=== PATIENT | female | born 1970 ===

== ENCOUNTER 2025-03-09 08:15 | Inpatient (IN) | payer OTHER ==
[~2025-03-09] VITALS: Ht 66 cm; Wt 69.4 kg
[2025-03-09 09:00] LABS: BASO % 0.2 % (0.1-1.2); EOS # 0.10 (0.04-0.54); EOS % 2.0 % (0.7-7.0); LYMPH # 1.75 (1.18-3.74); LYMPH % 34.9 % (19.3-53.1); MEAN PLATELET VOLUME 8.90 fl (9.4-12.4); MONO # 0.45 (0.24-0.82); MONO % 9.0 % (4.7-12.5); NEUT # 2.69 (1.56-6.13); NEUT % 53.7 % (34.0-71.1); RED CELL DISTRIBUTION WIDTH 14.3 % (11.6-14.4)
[2025-03-09] MEDS ORDERED: ZESTRIL10 M1 PO (09:05)
[2025-03-09] MEDS ORDERED: LEVOTHYROXINE137 MC1 PO (09:05)
[2025-03-09 09:06] VITALS: BP 130/83
[2025-03-09] MEDS ORDERED: ASA81 MG PO (09:06)
[2025-03-09 09:27] LABS: INR 1.0
[2025-03-09 09:56] LABS: ALT/SGPT 23.0 U/L (12-78); AST/SGOT 18.0 U/L (15-37); BILIRUBIN TOTAL 0.52 mg/dL (0.3-1.2); BUN CREA RATIO 20.0 (7.0-25.0); CREATININE SERUM 0.71 mg/dL (0.55-1.02); GFR 86.11; GLOBULINA 3.8 G/DL (2.4-3.5); GLUCOSE FASTING 92.0 mg/dL (65-100); OSMOLALITY SERUM 285.0 MOSM/KG (275-295)
[2025-03-09 13:31] LABS: URINE APPEARANCE Clear; URINE BILIRRUBIN Negative (NEGATIVE); URINE BLOOD Negative; URINE COLOR Yellow; URINE GLUCOSE Negative (NEGATIVE); URINE KETONE Negative (NEGATIVE); URINE LEUKOCYTE Negative; URINE NITRATE Negative; URINE PROTEIN Negative (NEGATIVE); URINE UROBILINOGEN 0.2 E.U./dl
[2025-03-09 13:32] LABS: URINE BACTERIA 208.7 uL (0.0-1933); URINE CAST 0.00 uL (0.0-1.40); URINE EPITHELIAL CELLS 8.4 uL (0.0-38.8); URINE RBC 5.4 uL (0.0-20.8); URINE WBC 2.6 uL (0.0-23.2)
[2025-03-14] MEDS ORDERED: CEFAZOLIN SODIUM 1,000 MG VIAL ONE (13:23)
[2025-03-14] MEDS ORDERED: POVIDONE-IODINE 118 ML BOTT TOP ONE (13:24)
[2025-03-14] MEDS ORDERED: METRONIDAZOLE/SODIUM CHLORIDE 500 MG/100 ML PIGGYBACK IV ONE (14:37)
[2025-03-14] MEDS ORDERED: SUGAMMADEX SODIUM 200 MG/2 ML VIAL IV ONE (17:02)
[2025-03-14] MEDS ORDERED: RINGERS SOLUTION,LACTATED 1,000 ML IV SCH (17:45)
[2025-03-14] MEDS ORDERED: MORPHINE SULFATE 4 MG/ML CARTRIDGE IV PRN (17:45)
[2025-03-14] MEDS ORDERED: ONDANSETRON HCL 2 MG/ML VIAL IV PRN (18:00)
[2025-03-14] MEDS ORDERED: KETOROLAC TROMETHAMINE 30 MG VIAL ONE (20:35)
[2025-03-14] MEDS ORDERED: KETOROLAC TROMETHAMINE 30 MG VIAL IV SCH (21:00)
[2025-03-14 21:50] VITALS: BP 145/87
[2025-03-15 00:39] VITALS: BP 130/70
[2025-03-15 04:30] VITALS: BP 130/72
[2025-03-15] MEDS ORDERED: LEVOTHYROXINE SODIUM 137 MCG TABLET PO SCH (06:00)
[2025-03-15 07:03] LABS: BASO % 0.1 % (0.1-1.2); EOS # 0.00 (0.04-0.54); EOS % 0.0 % (0.7-7.0); LYMPH # 1.27 (1.18-3.74); LYMPH % 14.3 % (19.3-53.1); MEAN PLATELET VOLUME 10.60 fl (9.4-12.4); MONO # 0.61 (0.24-0.82); MONO % 6.8 % (4.7-12.5); NEUT # 6.98 (1.56-6.13); NEUT % 78.4 % (34.0-71.1); RED CELL DISTRIBUTION WIDTH 14.0 % (11.6-14.4)
[2025-03-15 08:00] VITALS: BP 137/76
[2025-03-15] MEDS ORDERED: DOCUSATE SODIUM 100MG CAP PO SCH (09:00)
[2025-03-15 16:34] VITALS: BP 145/79
== END 2025-03-15 18:46 | disposition home or self-care (01) | DRG 743 ==
LOC: SURH 03-14 08:15 → OB/GYN 03-14 10:00 → O/R 03-14 10:00 → OB/GYN 03-14 13:50
PROVIDERS: ADMIT Obstetrics & Gynecology; ATTEND Obstetrics & Gynecology
PROC: 0UT74ZZ Resection of Bilateral Fallopian Tubes, Percutaneous Endoscopic Approach (ICD-10-PCS; 2025-03-14)
PROC: 0DNW4ZZ Release Peritoneum, Percutaneous Endoscopic Approach (ICD-10-PCS; 2025-03-14)
PROC: 0TJB8ZZ Inspection of Bladder, Via Natural or Artificial Opening Endoscopic (ICD-10-PCS; 2025-03-14)
PROC: 0UT94ZZ Resection of Uterus, Percutaneous Endoscopic Approach (ICD-10-PCS; principal; 2025-03-14 08:15)
DX: D25.1 Intramural leiomyoma of uterus (principal); D25.2 Subserosal leiomyoma of uterus; N80.03 Adenomyosis of the uterus; N80.329 Endometriosis of the posterior cul-de-sac, unspecified depth